=== PATIENT | female | born 1995 | race Two or more races ===

== ENCOUNTER 2017-03-21 17:05 | Observation (INO) | payer OTHER, SELFPAY ==
[~2017-03-21] VITALS: Ht 152.4 cm; Wt 70.9 kg
[~2017-03-21 17:05] MED LIST: GLYCOPYRROLATE 0.2MG/1ML, 5ML ONE; KETOROLAC 30 MG/1 ML ONE; NEOSTIGMINE 1 MG/ML, 10ML ONE
[2017-03-21] MEDS ORDERED: SODIUM CHLORIDE 0.9% 1,000ML IVBOLUS ONE (17:30)
[2017-03-21] MEDS ORDERED: SODIUM CHLORIDE FLUSH 10ML SYR IVF ONE (17:30)
[2017-03-21] MEDS ORDERED: ONDANSETRON 2MG/ML, 2ML IVPush ONE ×2 (17:30→19:30)
[2017-03-21 17:57] LABS: BASOPHILS # (AUTO) 0.01 x10^3/uL (0-0.3); BASOPHILS % (AUTO) 0 % (0-1); EOSINOPHILS # (AUTO) 0.07 x10^3/uL (0-0.8); EOSINOPHILS % (AUTO) 1 % (1-7); LYMPHOCYTES % (AUTO) 21 % (22-44); MD NO; MEAN CORPUSCULAR HEMOGLOBIN 28.2 pg (27.0-34.8); MEAN CORPUSCULAR HGB CONC 32.7 g/dL (32.4-35.8); MEAN CORPUSCULAR VOLUME 86.4 fL (80-100); MONOCYTES # (AUTO) 0.54 x10^3/uL (0-1.4); MONOCYTES % (AUTO) 5 % (2-9); NEUTROPHILS # (AUTO) 8.17 x10^3/uL (1.8-8.0); NEUTROPHILS % (AUTO) 74 % (42-75); PLATELET COUNT 232 x10^3/uL (130-400); RED BLOOD COUNT 5.26 x10^6/uL (3.82-5.3); RED CELL DISTRIBUTION WIDTH 13.7 % (9.6-15.2)
[2017-03-21] MEDS ORDERED: ONDANSETRON 2MG/ML, 2ML ONE ×2 (18:06→20:55)
[2017-03-21 18:11] LABS: ALANINE AMINOTRANSFERASE 21 U/L (12-78); ALBUMIN 3.5 g/dL (3.4-5.0); ANION GAP 8 mmol/L (5-15); CALCIUM 8.2 mg/dL (8.5-10.1); CHLORIDE 108 mmol/L (98-107); CREATININE 0.69 mg/dL (0.55-1.02)
[2017-03-21 18:16] LABS: ALKALINE PHOSPHATASE 41 U/L (45-117); BILIRUBIN,TOTAL 0.3 mg/dL (0.2-1.0); TOTAL PROTEIN 6.7 g/dL (6.4-8.2)
[2017-03-21] MEDS ORDERED: OXYcodone/APAP 10/325MG TABLET PO ONE (18:30)
[2017-03-21] MEDS ORDERED: OXYcodone/APAP 10/325MG TABLET ONE (18:48)
[2017-03-21] MEDS ORDERED: MORPHINE SULFATE 4 MG/ML, 1ML ONE (19:29)
[2017-03-21] MEDS ORDERED: morphine SULFATE 10 MG/ML, 1ML IVPush ONE (19:30)
[2017-03-21 19:49] LABS: MICROSCOPIC NOT IND
[2017-03-21 19:52] LABS: CULTURE INDICATED? NO
[2017-03-21] MEDS ORDERED: FENTANYL PF 100 MCG/2ML ONE ×2 (20:53→22:39)
[2017-03-21] MEDS ORDERED: MIDAZOLAM 1 MG/ML, 2ML ONE (20:53)
[2017-03-21] MEDS ORDERED: BUPIVACAINE/PF 0.25% ONE (20:55)
[2017-03-21] MEDS ORDERED: DEXAMETHASONE 4 MG/ML, 1ML ONE (20:55)
[2017-03-21] MEDS ORDERED: ROCURONIUM 10 MG/ML,10ML ONE (20:55)
[2017-03-21] MEDS ORDERED: LIDOCAINE-MPF 2% ,5ML ONE (20:55)
[2017-03-21] MEDS ORDERED: PROPOFOL 10 MG/ML, 20ML ONE (20:55)
[2017-03-21] MEDS ORDERED: CEFAZOLIN 1,000 MG ONE (20:55)
[2017-03-21] MEDS ORDERED: EPINEPHRINE 1 MG/ML, 1ML ONE (20:55)
[2017-03-21] MEDS ORDERED: BUPIVACAINE/PF-EPI 0.25% 1:200K IM ONE (21:26)
[2017-03-21] MEDS ORDERED: ALBUTEROL SULFATE 2.5 MG/3 ML NPPB PRN (21:30)
[2017-03-21] MEDS ORDERED: OXYcodone 5 MG/5 ML ORAL.SOL UDC PO PRN (21:30)
[2017-03-21] MEDS ORDERED: METOPROLOL 1 MG/ML, 5ML IV PRN (21:30)
[2017-03-21] MEDS ORDERED: ACETAMINOPHEN 325 MG TABLET PO PRN (21:30)
[2017-03-21] MEDS ORDERED: EPHEDRINE 50 MG/ML, 1ML IVPush PRN (21:30)
[2017-03-21] MEDS ORDERED: HYDROmorphone 1 MG/ML, 1ML IV PRN (21:30)
[2017-03-21] MEDS ORDERED: MEPERIDINE/PF 25MG/0.5ML IVPush PRN (21:30)
[2017-03-21] MEDS ORDERED: PROMETHAZINE 25 MG/ML, 1ML IV PRN (21:30)
[2017-03-21] MEDS ORDERED: LABETALOL 5MG/ML, 20ML IV PRN (21:30)
[2017-03-21] MEDS ORDERED: hydrALAzine 20 MG/ML, 1ML IV PRN (21:30)
[2017-03-21] MEDS ORDERED: FENTANYL PF 100 MCG/2ML IV PRN ×2 (21:30→23:30)
[2017-03-21] MEDS ORDERED: ONDANSETRON 2MG/ML, 2ML IVPush PRN (21:30)
[2017-03-21] MEDS ORDERED: MEPERIDINE/PF 50 MG/ML ONE (22:05)
[2017-03-21] MEDS ORDERED: OXYcodone 5 MG/5 ML ORAL.SOL UDC ONE (22:05)
[2017-03-21] MEDS ORDERED: ACETAMINOPHEN 650 MG/20.3 ML UDC ONE (22:05)
[2017-03-21] MEDS ORDERED: ONDANSETRON 2MG/ML, 2ML IV PRN (23:30)
[2017-03-21] MEDS ORDERED: KETOROLAC 30 MG/1 ML IV PRN (23:30)
[2017-03-21] MEDS ORDERED: OXYcodone/APAP 5/325MG TABLET PO PRN (23:30)
[2017-03-21] MEDS ORDERED: IBUPROFEN 600 MG TABLET PO PRN (23:30)
[2017-03-21 23:32] VITALS: BP 108/60
[2017-03-22] MEDS ORDERED: HYDR-883 PO (00:13)
[2017-03-22] MEDS ORDERED: IBUP-1223 PO (00:14)
[2017-03-22 00:15] VITALS: BP 125/70
[2017-03-22] MEDS: HYDROcodone/APAP 5/325 TABLET PO PRN ×2 (00:27→06:08)
[2017-03-22 04:14] VITALS: BP 92/60
[2017-03-22 05:54] VITALS: BP 97/56
== END 2017-03-22 06:35 | disposition home or self-care (01) ==
LOC: ED 20:41 → 4NOR 22:56 → ED 23:43 → 4NOR 23:43
PROVIDERS: ADMIT Obstetrics & Gynecology Female Pelvic Medicine and Reconstructive Surgery; ATTEND Obstetrics & Gynecology Female Pelvic Medicine and Reconstructive Surgery
DX: O00.90 Unspecified ectopic pregnancy without intrauterine pregnancy (principal); N80.3 Endometriosis of pelvic peritoneum; N80.1 Endometriosis of ovary; N83.202 Unspecified ovarian cyst, left side
CPT/HCPCS: 36415; 51020; 59151; 76830; 80053; 81003; 83690; 84702; 84703; 85025; 86850; 86900; 88305; 96374; 96375; 99285; G0378; J0171; J0690; J1100; J1885; J2175; J2250; J2270; J2405; J2704; J2710; J3010; J3490; J7030

== ENCOUNTER 2017-06-16 12:58 | Emergency (ER) | payer MEDICAID ==
[~2017-06-16] VITALS: Ht 154.9 cm; Wt 68.3 kg
[~2017-06-16 12:58] MED LIST changes: -GLYCOPYRROLATE 0.2MG/1ML, 5ML ONE; +HYDR-883 PO; +IBUP-1223 PO; -KETOROLAC 30 MG/1 ML ONE; -NEOSTIGMINE 1 MG/ML, 10ML ONE
[2017-06-16 13:22] VITALS: BP 132/89
== END 2017-06-16 14:32 | disposition home or self-care (01) ==
LOC: ED 14:00
DX: S93.492A Sprain of other ligament of left ankle, initial encounter (principal); F17.210 Nicotine dependence, cigarettes, uncomplicated; Y93.89 Activity, other specified; Y92.89 Other specified places as the place of occurrence of the external cause; Y99.8 Other external cause status; X50.1XXA Overexertion from prolonged static or awkward postures, initial encounter
CPT/HCPCS: 99284

== ENCOUNTER 2017-10-09 18:45 | Emergency (ER) | payer MEDICAID ==
[~2017-10-09] VITALS: Ht 160 cm; Wt 72.0 kg
[2017-10-09 21:59] VITALS: BP 129/77
== END 2017-10-09 22:01 | disposition home or self-care (01) ==
LOC: ED 20:06
DX: S06.0X1A Concussion with loss of consciousness of 30 minutes or less, initial encounter (principal); S02.32XA Fracture of orbital floor, left side, initial encounter for closed fracture; Y04.0XXA Assault by unarmed brawl or fight, initial encounter; Y93.89 Activity, other specified; Y92.511 Restaurant or cafe as the place of occurrence of the external cause; Y99.8 Other external cause status
CPT/HCPCS: 70450; 70486; 99284

== ENCOUNTER 2017-12-12 03:40 | Emergency (ER) | payer MEDICAID ==
[~2017-12-12] VITALS: Ht 157.5 cm; Wt 71.0 kg
[~2017-12-12 03:40] MED LIST changes: +HYDR-3652 PO; +HYDR-3653 PO; -HYDR-883 PO
[2017-12-12 03:42] VITALS: BP 152/100
[2017-12-12] MEDS ORDERED: AMOXICILLIN 500 MG CAPSULE PO ONE (04:15)
== END 2017-12-12 04:17 | disposition home or self-care (01) ==
LOC: ED 04:16
DX: J02.0 Streptococcal pharyngitis (principal); E86.0 Dehydration
CPT/HCPCS: 93005; 99283

== ENCOUNTER 2018-06-12 20:39 | Emergency (ER) | payer SELFPAY ==
[~2018-06-12] VITALS: Ht 157.5 cm; Wt 72.3 kg
[2018-06-12] MEDS ORDERED: ONDANSETRON ODT 4 MG PO ONE (21:00)
[2018-06-12] MEDS ORDERED: ONDANSETRON ODT 4 MG ONE (22:29)
[2018-06-12 22:35] LABS: BASOPHILS # (AUTO) 0.03 x10^3/uL (0-0.3); BASOPHILS % (AUTO) 0 % (0-1); EOSINOPHILS # (AUTO) 0.08 x10^3/uL (0-0.8); EOSINOPHILS % (AUTO) 1 % (1-7); LYMPHOCYTES % (AUTO) 24 % (22-44); MD NO; MEAN CORPUSCULAR HEMOGLOBIN 28.4 pg (27.0-34.8); MEAN CORPUSCULAR HGB CONC 33.5 g/dL (32.4-35.8); MEAN CORPUSCULAR VOLUME 84.7 fL (80-100); MEAN PLATELET VOLUME 7.7 fL (7.4-10.4); MONOCYTES # (AUTO) 0.56 x10^3/uL (0-1.4); MONOCYTES % (AUTO) 7 % (2-9); NEUTROPHILS # (AUTO) 5.49 x10^3/uL (1.8-8.0); NEUTROPHILS % (AUTO) 68 % (42-75); PLATELET COUNT 244 x10^3/uL (130-400); RED CELL DISTRIBUTION WIDTH 13.1 % (9.6-15.2)
[2018-06-12 22:41] LABS: MICROSCOPIC AUTO
--- NOTE | 2018-06-12 22:42 | NUR ---
Pt presents to ED for congestion, abd pain, nause and vomiting. Pt states stomach bug is going around her work. Also c/o BECKWITH.
[2018-06-12 22:44] LABS: CULTURE INDICATED? YES
[2018-06-12 22:46] LABS: ALANINE AMINOTRANSFERASE 24 U/L (12-78); ALBUMIN 3.7 g/dL (3.4-5.0); ANION GAP 5 mmol/L (5-15); CALCIUM 8.9 mg/dL (8.5-10.1); CHLORIDE 107 mmol/L (98-107)
[2018-06-12 22:52] LABS: ALKALINE PHOSPHATASE 55 U/L (45-117); BILIRUBIN,TOTAL 0.6 mg/dL (0.2-1.0); CREATININE 0.77 mg/dL (0.55-1.02); TOTAL PROTEIN 7.7 g/dL (6.4-8.2)
[2018-06-12 23:58] VITALS: BP 134/79
== END 2018-06-13 00:05 | disposition home or self-care (01) ==
LOC: ED 23:14
DX: N30.00 Acute cystitis without hematuria (principal); J06.9 Acute upper respiratory infection, unspecified
CPT/HCPCS: 36415; 71046; 80053; 81001; 83690; 84703; 85025; 87081; 87086; 87880; 99284; Q0162; 87147